=== PATIENT | male | born 1945 | race Caucasian/White ===

== ENCOUNTER 2019-04-07 09:53 | Emergency (ER) | payer OTHER, BC ==
[2019-04-07 10:01] VITALS: BP 146/68; PULSE 50; TEMP 97.7; BMI 29.1
--- NOTE | 2019-04-07 10:32 | PDOC ---
History of Present Illness - General Chief Complaint: Abscess Boil Stated Complaint: LT.FINGER PAIN Time Seen by Provider: 04/07/19 10:04 History Source: Patient Exam Limitations: Clinical Condition - History of Present Illness Initial Comments: 04/07/19 10:36 Patient with history of cardiomyopathy on Eliquis is present with complaint of redness and swelling to plantar aspect of distal phalange of left middle finger status post being bit by an insect 4 days ago. Patient reports swelling has been persistent for 3 days now. Denies fever, chills, open wound or drainage from site. Reported only mild pain around swelling of distal finger. Denies any other symptoms Timing/Duration: reports: other (2 days) Past History - Past Medical History Allergies/Adverse Reactions: Allergies Allergy/AdvReac Type Severity Reaction Status Date / Time finasteride [From Proscar] Allergy Verified 04/07/19 10:01 Home Medications: Ambulatory Orders Clindamycin [Cleocin -] 300 mg PO BID 7 Days #14 capsule 04/07/19 Cardiac Disorders: Yes (AF, PE, CARDIAC ABLASION) COPD: No Other medical history: FACTOR 5, MRSA NARES 8 YEARS AGO - Suicide/Smoking/Psychosocial Hx Smoking History: Never smoked Hx Alcohol Use: Yes (GLASS OF WINE NIGHTLY) Drug/Substance Use Hx: No Review of Systems - Review of Systems Able to Perform ROS?: Yes Is the patient limited [place] Citizen proficient: No Constitutional: No: Chills, Fever, Malaise HEENTM: No: Symptoms Reported Respiratory: No: Symptoms reported Cardiac (ROS): No: Symptoms Reported ABD/GI: No: Symptoms Reported Musculoskeletal: Yes: Symptoms Reported, See HPI, Muscle Pain (distal lft middle finger) Integumentary: Yes: Symptoms Reported, See HPI, Erythema (distal left middle finger), Other (mild swelling to distal left middle finger) Neurological: No: Symptoms reported, Numbness, Paresthesia, Tingling All Other Systems: Reviewed and Negative *Physical Exam - Vital Signs Last Vital Signs Temp Pulse Resp BP Pulse Ox 97.7 F 50 L 14 146/68 97 04/07/19 09:57 04/07/19 09:57 04/07/19 09:57 04/07/19 09:57 04/07/19 09:57 - Physical Exam Comments: 04/07/19 10:41 GENERAL: Well developed, well nourished. Awake and alert. No acute distress. CARDIOVASCULAR: Regular rate and rhythm. No murmurs, rubs, or gallops. PULMONARY: No evidence of respiratory distress. MUSCULOSKELETAL : mild tenderness over the plantar aspect of distal phalanx of left middle finger around localized swelling to plantar aspect of left middle finger. No bony deformities SKIN: Warm and dry. Normal capillary refill. mild swelling to anterior aspect of distal phalange with mild localized erythema. Mild tenderness around leg swelling to plant aspect of distal phalange of left middle finger NEUROLOGICAL: Alert, awake, appropriate. No motor deficits in the lower extremities. Gait is normal without ataxia. PSYCHIATRIC: Cooperative. Good eye contact. Appropriate mood and affect. General Appearance: Yes: Nourished, Appropriately Dressed. No: Apparent Distress Medical Decision Making - Medical Decision Making 04/07/19 10:37 Patient with history of cardiomyopathy on Eliquis is present with complaint of redness and swelling to plantar aspect of distal phalange of left middle finger status post being bit by an insect 4 days ago. Patient reports swelling has been persistent for 3 days now. Denies fever, chills, open wound or drainage from site. Reported only mild pain around swelling of distal finger. Denies any other symptoms Exam significant for mild swelling to anterior aspect of distal phalange with mild localized erythema. Mild tenderness around leg swelling to plant aspect of distal phalange of left middle finger. Attempt made to drain swelling after area cleaned with Betadine but no purulent discharge was obtained from swelling. On the mild blood was obtained from swelling. Wound culture obtained. Patient will rather wait for culture results before starting antibiotics. Prescription for clindamycin sent for patient to hold pending culture results and patient will be contacted with culture results to start antibiotics if needed *DC/Admit/Observation/Transfer Diagnosis at time of Disposition: Felon of finger of left hand - Discharge Dispostion Disposition: HOME Condition at time of disposition: Stable Decision to Admit order: No - Prescriptions Prescriptions: Clindamycin [Cleocin -] 300 mg PO BID 7 Days #14 capsule - Referrals Referrals: Phoebe Cerda MD [Staff Physician] - - Patient Instructions Printed Discharge Instructions: DI for Paronychia Additional Instructions: Apply hot compresses to finger 2-3 times a day as needed for swelling. Hold off on prescribed antibiotics until after wound culture as discussed and you'll be contacted with urine culture results if he needs to start antibiotics. Follow- up referred dermatology if symptoms persist for more than 5 days - Post Discharge Activity
== END 2019-04-07 10:43 | disposition home or self-care (01) ==
LOC: JERFT 09:53
DX: L03.012 Cellulitis of left finger (principal)
CPT/HCPCS: 87070; 87205; 99282-25